=== PATIENT | female | born 2000 | race Caucasian/White ===

== ENCOUNTER → 2022-12-07 | Outpatient (CLI) | payer OTHER ==
[~2022-12-07] MED LIST: ACET325UDC; ALBU.083IS; ANTOXYBENA OT; AZIT100SU PO; BUDE.25; Bactrim Ds Tab1 EACH PO; CETI5 PO; CODACEE120 PO; FLUT110OIA INH; MONT10T; MONT5TCH PO; PROM12.5S PR
[2022-12-07 14:10] LABS: Source, Urine Clean Catch
[2022-12-07 15:34] LABS: Bacteria Few /hpf; Red Blood Cells, Urine 0-2 /hpf (0-2); Squamous Epithelial Cells Few /hpf (Few); White Blood Cells, Urine 0-2 /hpf (0-5)
[2022-12-07 15:43] LABS: U Amphetamine Screen Not Detected; U Barbituate Screen Not Detected; U Benzodiazapine Screen Not Detected; U Buprenorphine Screen Not Detected; U Cannabinoids Screen DETECTED; U Cocaine Screen Not Detected; U Methadone Screen Not Detected; U Methamphetamine Screen Not Detected; U Opiates Screen Not Detected; U Oxycodone Screen Not Detected; U Phencyclidine Screen Not Detected; U Propoxyphene Screen Not Detected
[2022-12-07 15:51] LABS: BASOPHILS ABSOLUTE AUTO 0.04 K/mm3 (0.00-0.23); BASOPHILS PERCENT AUTO 1 % (0-2); EOSINOPHILS ABSOLUTE AUTO 0.08 K/mm3 (0.00-0.68); EOSINOPHILS PERCENT AUTO 1 % (0-6); Hematocrit 41.3 % (33.0-51.0); Hemoglobin 14.3 g/dL (11.5-16.0); IMMATURE GRAN ABSOLUTE AUTO 0.03 K/mm3 (0.00-0.10); IMMATURE GRAN PERCENT AUTO 0 % (0-1); LYMPHOCYTES ABSOLUTE AUTO 1.69 K/mm3 (0.84-5.20); LYMPHOCYTES PERCENT AUTO 19 % (21-46); MONOCYTES PERCENT AUTO 5 % (4-13); Mean Corpuscular HGB 31.2 pg (26.0-34.0); Mean Corpuscular HGB Conc 34.6 g/dL (31.5-36.5); Mean Corpuscular Volume 90 fL (80-100); NEUTROPHILS ABSOLUTE AUTO 6.64 K/mm3 (1.96-9.15); NEUTROPHILS PERCENT AUTO 75 % (41-73); RDW Coefficient Variation 12.2 % (11.7-14.2); Red Blood Cell Count 4.58 M/mm3 (3.80-5.20); White Blood Cell Count 8.88 K/mm3 (4.00-11.30)
[2022-12-07 16:46] LABS: Mean Platelet Volume 10.9 fL (9.1-12.4); Platelet Count 212 K/mm3 (150-400)
[2022-12-09 06:08] LABS: HBSAG SCREEN Negative (Negative); HCV ANTIBODY Non Reactive (Non Reactive)
[2022-12-10 05:09] LABS: HIV AB/P24 AG SCREEN Non Reactive (Non Reactive)
[2022-12-12 05:12] LABS: CARBOXY-THC 840 (.)
== END | disposition home or self-care (01) ==
LOC: LAB SHORT 14:06 → LAB 14:06
PROVIDERS: Advanced Practice Midwife
DX: O09.891 Supervision of other high risk pregnancies, first trimester (principal)
CPT/HCPCS: 81015; 84443; 85025; 86592; 86762; 86803; 86850; 86900; 86901; 87086; 87340; 87389; G0480

== ENCOUNTER → 2022-12-31 | Outpatient (CLI) | payer OTHER ==
[2023-01-02 00:09] LABS: CHLAMYDIA TRACHOMATIS, NAA Negative (Negative)
== END | disposition home or self-care (01) ==
LOC: LAB SHORT 17:44 → LAB 17:44
PROVIDERS: Obstetrics & Gynecology
DX: Z01.419 Encounter for gynecological examination (general) (routine) without abnormal findings (principal); Z11.3 Encounter for screening for infections with a predominantly sexual mode of transmission
CPT/HCPCS: 87491; 87591; G0145

== ENCOUNTER → 2023-07-08 | Outpatient (CLI) | payer OTHER ==
[~2023-07-08] MED LIST changes: +DOCU100 PO; +IBUP800 PO; +OXYC10TA19 PO
== END | disposition home or self-care (01) ==
LOC: LAB 16:18 → LAB SHORT 16:18
DX: O99.213 Obesity complicating pregnancy, third trimester (principal)
CPT/HCPCS: 87081; 87150

== ENCOUNTER 2023-07-29 03:57 | Inpatient (IN) | payer OTHER ==
[2023-07-29] VITALS (79 sets, daily range): BP systolic 71–205; BP diastolic 38–104
[~2023-07-29] VITALS: Ht 154.9 cm; Wt 99.5 kg
[~2023-07-29 03:57] MED LIST changes: -DOCU100 PO; -IBUP800 PO; -OXYC10TA19 PO
[2023-07-29] MEDS ORDERED: LR Oxytocin 20 Units 1,000 ML IV SCH ×2 (04:30→23:55)
[2023-07-29] MEDS ORDERED: Bupivacaine HCl 2.5 MG/ML 10ML P/F Injection XX SCH (04:30)
[2023-07-29] MEDS ORDERED: Castor Oil 59.146 ML BTL TOP SCH (04:30)
[2023-07-29] MEDS ORDERED: Calcium Carbonate 500 MG Tab Chew PO PRN (04:30)
[2023-07-29] MEDS ORDERED: Methylergonovine Maleate 0.2MG / ML 1ML Amp IM SCH (04:30)
[2023-07-29] MEDS ORDERED: Lactated Ringer's 1,000 ML IV SCH ×4 (04:30→21:10)
[2023-07-29] MEDS ORDERED: Misoprostol 200 MCG Tab PR SCH (04:30)
[2023-07-29] MEDS ORDERED: FentaNYL Citrate 50 MCG/ML 2 ML Injection IV PRN ×4 (04:30→21:40)
[2023-07-29] MEDS ORDERED: FentaNYL 2mcg/ml-Bup 0.1% Epd 250 ML EPI PRN (04:30)
[2023-07-29] MEDS ORDERED: Lidocaine HCl 1% 30 ML SDV XX SCH (04:30)
[2023-07-29] MEDS ORDERED: Oxytocin 10 Unit / ML Vial IM SCH (04:30)
[2023-07-29] MEDS ORDERED: Lactated Ringer's 1,000 ML IV PRN (04:30)
[2023-07-29] MEDS ORDERED: Bupivacaine 0.5% HCl 5 MG/ML 30MLVIAL XX SCH (04:30)
[2023-07-29] MEDS ORDERED: Acetaminophen 500 MG Tab PO PRN (04:30)
[2023-07-29] MEDS ORDERED: ePHEDrine Sulfate 50 MG/ML 1ML Injection XX PRN (04:30)
[2023-07-29] MEDS ORDERED: Ondansetron HCl 2 MG / ML 2ML Vial IV PRN ×5 (04:30→23:45)
[2023-07-29] MEDS ORDERED: NIFEdipine 10 MG Cap ONE (04:31)
[2023-07-29] MEDS ORDERED: Calcium Gluconate 0.465 mEq/ml 10 ml Vial IV PRN (04:35)
[2023-07-29] MEDS ORDERED: Magnesium Sulf 2 GM/Water 50ML 50 ML IV SCH (04:35)
[2023-07-29] MEDS ORDERED: Labetalol HCL 5 MG/ML 4ML Injection (Single Dose) IV PRN ×2 (04:35)
[2023-07-29] MEDS ORDERED: Magnesium Sul 4 GM/Water100 ML 100 ML IV ONE (04:35)
[2023-07-29] MEDS ORDERED: NIFEdipine 10 MG Cap PO PRN (04:35)
[2023-07-29] MEDS ORDERED: Magnesium Sulfate 500 ML IV SCH (04:35)
[2023-07-29] MEDS ORDERED: Labetalol HCL 5 MG/ML 4ML Injection (Single Dose) IV ONE (04:35)
[2023-07-29 05:30] LABS: BASOPHILS ABSOLUTE AUTO 0.03 K/mm3 (0.00-0.23); BASOPHILS PERCENT AUTO 0 % (0-2); EOSINOPHILS ABSOLUTE AUTO 0.11 K/mm3 (0.00-0.68); EOSINOPHILS PERCENT AUTO 1 % (0-6); Hematocrit 36.8 % (33.0-51.0); Hemoglobin 12.9 g/dL (11.5-16.0); IMMATURE GRAN ABSOLUTE AUTO 0.04 K/mm3 (0.00-0.10); IMMATURE GRAN PERCENT AUTO 0 % (0-1); LYMPHOCYTES ABSOLUTE AUTO 2.48 K/mm3 (0.84-5.20); LYMPHOCYTES PERCENT AUTO 26 % (21-46); MONOCYTES PERCENT AUTO 5 % (4-13); Mean Corpuscular HGB 30.8 pg (26.0-34.0); Mean Corpuscular HGB Conc 35.1 g/dL (31.5-36.5); Mean Corpuscular Volume 88 fL (80-100); Mean Platelet Volume 10.7 fL (9.1-12.4); NEUTROPHILS ABSOLUTE AUTO 6.48 K/mm3 (1.96-9.15); NEUTROPHILS PERCENT AUTO 67 % (41-73); Platelet Count 308 K/mm3 (150-400); RDW Coefficient Variation 11.8 % (11.7-14.2); RDW Standard Deviation 37.3 fL (35.1-46.3); Red Blood Cell Count 4.19 M/mm3 (3.80-5.20); White Blood Cell Count 9.64 K/mm3 (4.00-11.30)
[2023-07-29 05:48] LABS: Albumin, Blood 2.7 g/dL (3.4-5.0); Albumin/Globulin Ratio 0.6 (0.8-1.8); Bilirubin, Total 0.3 mg/dL (0.1-1.0); Bun/Creatinine Ratio 20.3 (12.0-20.0); Calcium, Blood 9.7 mg/dL (8.5-10.1); Creatinine, Blood 0.59 mg/dL (0.40-1.00); Globulin, Blood 4.6 g/dL (2.2-4.0); Total Protein, Blood 7.3 g/dL (6.4-8.2)
[2023-07-29 06:15] LABS: International Normalized Ratio 0.88; Prothrombin Time Results 9.5 Sec (9.7-11.5)
[2023-07-29] MEDS ORDERED: Phenylephrine HCl 100 MCG/ML-NS 10MLSYR (1MG/10ML) ONE (11:23)
[2023-07-29] MEDS ORDERED: Naloxone HCl 0.4MG / ML 1ML Vial IV PRN (12:10)
[2023-07-29] MEDS ORDERED: ePHEDrine Sulfate 50 MG/ML 1ML Injection IV PRN (12:15)
[2023-07-29] MEDS ORDERED: FentaNYL Citrate 50 MCG/ML 2 ML Injection ONE (14:27)
[2023-07-29 16:06] LABS: Creatinine, Urine Random 32.4 mg/dL (27.00-270.00); Protein, Urine Random 10.7 mg/dL (0.0-11.9); Protein/Creat Ratio, Ur Random 0.3
[2023-07-29] MEDS ORDERED: GENTAMICIN SULFATE IV SCH (21:10)
[2023-07-29] MEDS ORDERED: Clindamycin 900mg in D5W 50ML 50 ML IV SCH ×2 (21:10→21:20)
[2023-07-29] MEDS ORDERED: NS IV ONE (21:20)
[2023-07-29] MEDS ORDERED: GENTAMICIN SULFATE IV ONE (21:20)
[2023-07-29] MEDS ORDERED: Lidocaine HCl 2% 10 ML SDA ONE (21:36)
[2023-07-29] MEDS ORDERED: EpiNEPhrine 1 MG/1 ML 1ML Vial ONE (21:36)
[2023-07-29] MEDS ORDERED: Sodium Bicarb 8.4% 1 MEQ/ML 50 ML Vial ONE (21:38)
[2023-07-29] MEDS ORDERED: Metoclopramide HCl 5MG / ML 2ML Vial IV PRN (21:40)
[2023-07-29] MEDS ORDERED: HYDROmorphone HCl/Pf 1MG SYR IV PRN ×2 (21:40→23:45)
[2023-07-29] MEDS ORDERED: Oxytocin 10 Unit / ML Vial ONE ×3 (21:50→22:34)
[2023-07-29] MEDS ORDERED: Ketorolac Tromethamine 30mg Vial ONE (21:50)
[2023-07-29] MEDS ORDERED: Tranexamic Acid 100 ML IV ONE (22:16)
[2023-07-29] MEDS ORDERED: Ondansetron HCl 2 MG / ML 2ML Vial ONE (22:25)
[2023-07-29] MEDS ORDERED: Misoprostol 200 MCG Tab ONE (22:34)
[2023-07-29 22:50] LABS: PCO2 Cord - Arterial 60.2 mmHg (40-50)
[2023-07-29 22:51] LABS: PO2 Cord - Arterial < 14 mmHg (16-20)
[2023-07-29 22:54] LABS: PCO2 Cord - Venous 52.3 mmHg (40-50); PO2 Cord - Venous < 14 mmHg (28-32); pH Umbilical Cord - Venous 7.28 (7.26-7.35)
[2023-07-29] MEDS ORDERED: Lanolin Cream TOP PRN (23:45)
[2023-07-29] MEDS ORDERED: Misoprostol 200 MCG Tab PR PRN (23:45)
[2023-07-29] MEDS ORDERED: Rho(D) Immune Globulin 300 MCG / SYR IM ONE (23:45)
[2023-07-29] MEDS ORDERED: DiphenhydrAMINE HCL 25 MG Cap PO PRN (23:45)
[2023-07-29] MEDS ORDERED: OxyCODONE HCL 5 MG TAB PO PRN (23:45)
[2023-07-29] MEDS ORDERED: Promethazine HCl 25 MG Tab PO PRN (23:55)
[2023-07-29] MEDS ORDERED: Magnesium Hydroxide Conc 10 ML UDC PO PRN (23:55)
[2023-07-29] MEDS ORDERED: Metoclopramide HCl 10 MG Tab PO PRN (23:55)
[2023-07-30] VITALS (25 sets, daily range): BP systolic 95–179; BP diastolic 57–87
[2023-07-30] MEDS ORDERED: Acetaminophen 500 MG Tab PO SCH
[2023-07-30] MEDS ORDERED: Ibuprofen 400 MG Tab PO SCH
[2023-07-30] MEDS ORDERED: Ketorolac Tromethamine 30mg Vial IV SCH
[2023-07-30] MEDS ORDERED: Simethicone 80 MG Chew PO PRN (00:05)
[2023-07-30] MEDS ORDERED: Carboprost Tromethamine 250 MCG/ML 1ML Amp IM PRN (00:05)
[2023-07-30] MEDS ORDERED: OxyCODONE HCL 5 MG TAB PO PRN (00:05)
[2023-07-30] MEDS ORDERED: Tranexamic Acid 100 ML IV ONE (04:00)
[2023-07-30 06:10] LABS: BASOPHILS ABSOLUTE AUTO 0.03 K/mm3 (0.00-0.23); BASOPHILS PERCENT AUTO 0 % (0-2); EOSINOPHILS PERCENT AUTO 0 % (0-6); Hematocrit 33.3 % (33.0-51.0); Hemoglobin 11.6 g/dL (11.5-16.0); IMMATURE GRAN ABSOLUTE AUTO 0.05 K/mm3 (0.00-0.10); IMMATURE GRAN PERCENT AUTO 0 % (0-1); LYMPHOCYTES ABSOLUTE AUTO 1.55 K/mm3 (0.84-5.20); LYMPHOCYTES PERCENT AUTO 9 % (21-46); MONOCYTES ABSOLUTE AUTO 0.86 K/mm3 (0.16-1.47); MONOCYTES PERCENT AUTO 5 % (4-13); Mean Corpuscular HGB 30.9 pg (26.0-34.0); Mean Corpuscular HGB Conc 34.8 g/dL (31.5-36.5); Mean Corpuscular Volume 89 fL (80-100); Mean Platelet Volume 10.9 fL (9.1-12.4); NEUTROPHILS ABSOLUTE AUTO 14.05 K/mm3 (1.96-9.15); NEUTROPHILS PERCENT AUTO 85 % (41-73); Platelet Count 303 K/mm3 (150-400); RDW Coefficient Variation 11.9 % (11.7-14.2); Red Blood Cell Count 3.76 M/mm3 (3.80-5.20); White Blood Cell Count 16.54 K/mm3 (4.00-11.30)
[2023-07-30 06:35] LABS: Albumin, Blood 2.2 g/dL (3.4-5.0); Albumin/Globulin Ratio 0.6 (0.8-1.8); Bilirubin, Total 0.6 mg/dL (0.1-1.0); Bun/Creatinine Ratio 13.6 (12.0-20.0); Creatinine, Blood 0.59 mg/dL (0.40-1.00); Globulin, Blood 3.9 g/dL (2.2-4.0); Potassium, Blood 3.7 mmol/L (3.5-5.5); Total Protein, Blood 6.1 g/dL (6.4-8.2)
[2023-07-30 06:36] LABS: Calcium, Blood 7.1 mg/dL (8.5-10.1)
[2023-07-30] MEDS ORDERED: Polyethylene Glycol 3350 17 gm PO SCH (09:00)
[2023-07-30] MEDS ORDERED: NIFEdipine 30 MG TabCR PO SCH (09:00)
[2023-07-30] MEDS ORDERED: Prenatal Vit/FE Fumarate/FA 1 Tab PO SCH (09:00)
[2023-07-30] MEDS ORDERED: Ketorolac Tromethamine 30mg Vial IV ONE (19:45)
--- NOTE | 2023-07-30 22:37 | NUR ---
MAGNESIUM TURNED OFF NOW
[2023-07-31] VITALS (7 sets, daily range): BP systolic 122–160; BP diastolic 65–83
--- NOTE | 2023-07-31 11:04 | NUR ---
patient sitting up holding baby, pain 5/10, B/P ELEVATED CHANGED B/P CUFF AND WILL RETAKE IN 15 MINUTES
[2023-08-01 06:00] VITALS: BP 133/64
[2023-08-01 08:56] VITALS: BP 129/78
[2023-08-01 11:04] VITALS: BP 149/84
[2023-08-01] MEDS ORDERED: DOCU100 PO (12:09)
[2023-08-01] MEDS ORDERED: IBUP800 PO (12:09)
[2023-08-01] MEDS ORDERED: OXYC10TA19 PO (12:10)
--- NOTE | 2023-08-01 12:39 | NUR ---
STABLE NB D/C TO HOME WITH PARENTS, REVIEWED DISCHARGE MOM VERBALIZED UNDERSTANDING INSTRUCTIONS AND FOLLOWUP APPOINTMENTS
== END 2023-08-01 12:39 | disposition home or self-care (01) | DRG 787 ==
LOC: OBS 03:57 → BC 04:35
PROVIDERS: Family Medicine; Obstetrics & Gynecology; ADMIT Obstetrics & Gynecology
PROC: 10D00Z1 Extraction of Products of Conception, Low, Open Approach (ICD-10-PCS; principal; 2023-07-29 21:30)
DX: O42.02 Full-term premature rupture of membranes, onset of labor within 24 hours of rupture (principal); O99.324 Drug use complicating childbirth; O32.2XX0 Maternal care for transverse and oblique lie, not applicable or unspecified; O14.14 Severe pre-eclampsia complicating childbirth; Z3A.38 38 weeks gestation of pregnancy; Z37.0 Single live birth; O99.52 Diseases of the respiratory system complicating childbirth; J45.909 Unspecified asthma, uncomplicated; O33.9 Maternal care for disproportion, unspecified; O99.344 Other mental disorders complicating childbirth; F41.9 Anxiety disorder, unspecified; F12.90 Cannabis use, unspecified, uncomplicated; Z88.0 Allergy status to penicillin; Z79.899 Other long term (current) drug therapy
CPT/HCPCS: 36415; 80053; 82570; 82803; 83615; 84156; 85025; 85384; 85610; 85730; 86850; 86900; 86901; 86923; A9270; J0171; J1580; J1885; J2001; J2371; J2405; J2590; J3010; J3475; J7120